=== PATIENT | female | born 1965 | race Asian ===

== ENCOUNTER 2018-04-18 10:26 | Day surgery (SDC) | payer OTHER ==
[~2018-04-18 10:26] MED LIST: CEFAZOLIN 1 GM INJ; CEFAZOLIN 2 GM/50 ML (PMX) 50 ML IVPB; SOD CHLORIDE 0.9% 1,000 ML IV
[2018-04-18] MEDS ORDERED: BUPIVACAINE 0.25% (MPF) 30 ML INJ (10:46)
[2018-04-18 12:26] LABS: ADD MAN DIFF? NO
[2018-04-18 12:28] LABS: BASOPHIL # 0.1 10^3/ul (0.0-0.1); BASOPHILS % 1.3 % (0.0-2.0); EOSINOPHILS # 0.8 10^3/ul (0.0-0.5); EOSINOPHILS % 17.8 % (0.0-7.0); HEMATOCRIT 39.7 % (37.0-47.0); HEMOGLOBIN 13.1 g/dl (12.0-16.0); LYMPHOCYTES # 1.6 10^3/ul (0.8-2.9); LYMPHOCYTES % 35.2 % (15.0-51.0); MEAN CORPUSCULAR HEMOGLOBIN 31.7 pg (29.0-33.0); MEAN CORPUSCULAR VOLUME 96.1 fl (82.0-101.0); MEAN PLATELET VOLUME 9.2 fl (7.4-10.4); MONOCYTE # 0.3 10^3/ul (0.3-0.9); MONOCYTES % 7.4 % (0.0-11.0); NEUTROPHIL # 1.8 10^3/ul (1.6-7.5); NEUTROPHILS % 38.1 % (39.0-77.0); PLATELET COUNT 182 10^3/UL (140-415); RED BLOOD COUNT 4.13 10^6/ul (4.20-5.40); RED CELL DISTRIBUTION WIDTH 11.8 % (11.5-14.5)
[2018-04-18 12:28] LABS: WHITE BLOOD COUNT 4.6 10^3/ul (4.8-10.8)
[2018-04-18 12:46] LABS: ALANINE AMINOTRANSFERASE 37 IU/L (13-69); ALBUMIN 4.5 g/dl (3.3-4.9); ALBUMIN/GLOBULIN RATIO 1.21; ALKALINE PHOSPHATASE 120 IU/L (42-121); ANION GAP 14 (8-16); ASPARTATE AMINO TRANSFERASE 34 IU/L (15-46); BILIRUBIN,INDIRECT 0.8 mg/dl (0-1.1); BILIRUBIN,TOTAL 0.8 mg/dl (0.2-1.3); CARBON DIOXIDE 29 mmol/L (21-31); CHLORIDE 106 mmol/L (97-110); GLUCOSE 94 mg/dl (70-220); TOTAL PROTEIN 8.2 g/dl (6.1-8.1)
[2018-04-18 12:49] LABS: BLOOD UREA NITROGEN 11 mg/dl (7-20); CALCIUM 9.5 mg/dl (8.4-10.2); CREATININE 0.64 mg/dl (0.44-1.00); POTASSIUM 4.1 mmol/L (3.5-5.1); SODIUM 145 mmol/L (135-144)
[2018-04-18 12:50] LABS: INR 0.92; PROTIME 12.4 Sec (11.9-14.9)
[2018-04-18 13:01] LABS: PARTIAL THROMBOPLASTIN TIME 36.5 Sec (25.0-35.0)
[2018-04-18] MEDS ORDERED: HYDROmorphONE 1 MG/5 ML IV SYRINGE IV ×2 (13:30)
[2018-04-18] MEDS ORDERED: FENTAnyl 50 MCG/ML VIAL IV ×2 (13:30)
[2018-04-18] MEDS ORDERED: DIPHENHYDRAMINE 50 MG INJ IV (13:30)
[2018-04-18] MEDS ORDERED: METOCLOPRAMIDE 10 MG INJ IV (13:30)
[2018-04-18] MEDS ORDERED: ONDANSETRON 4 MG INJ IV (13:30)
[2018-04-18] MEDS ORDERED: MEPERIDINE 25 MG INJ IV (13:30)
[2018-04-18] MEDS ORDERED: MIDAZOLAM 1 MG/ML 2 ML INJ (13:44)
[2018-04-18] MEDS: BUPIVACAINE 0.5% (SDV) 30 ML INJ (13:55)
[2018-04-18] MEDS: LIDOCAINE 2% (MDV) 20 ML INJ (13:55)
[2018-04-18] MEDS ORDERED: HYDROCODONE/APAP (5/325) TAB PO (15:00)
== END 2018-04-18 15:56 | disposition home or self-care (01) ==
LOC: SDS 10:26
DX: L72.0 Epidermal cyst (principal); R94.31 Abnormal electrocardiogram [ECG] [EKG]
CPT/HCPCS: 14040; 71045; 80053; 84703; 85025; 85610; 85730; 88307; 93005